=== PATIENT | female | born 1965 | race Caucasian/White ===

== ENCOUNTER 2017-10-12 01:03 | Emergency (ER) | payer OTHER, SELFPAY ==
[2017-10-12 01:04] VITALS: BP 149/110; PULSE 111; RESP 17; TEMP 36.6; O2SAT 99; BMI 35.9
--- NOTE | 2017-10-12 01:11 | ED.VISSUMM ---
- ER Visit Summary Date of Service: 10/12/17 Chief Complaint: [] Abnormal labs History of Present Illness: The patient is a 52 F [] reports she was called by her PCPs office for report of a high potassium. Patient denies any chest pain or shortness of breath. She is asymptomatic. She is here to confirm her reported hyperkalemia. Physical Examination: [] Afebrile, vital signs stable. Cardiovascular exam is regular rate and rhythm. Lungs are clear to auscultation. Abdomen is soft nontender. Test Results: [] CBC, BMP: Normal. Emergency Department Course and Treatment: [] Patient evaluated for reported hyperkalemia which was negative. Patient counseled regarding her laboratory findings and she was amenable to discharge and follow-up with her PCP. Treatment Plan: [] Follow-up with PCP. Disposition: [] Discharge, stable. Impression: [] Evaluated for condition not found False positive lab results This note was generated with [employer] dictation software. It may contain incorrect words, spelling, and punctuation that were not noted in review of the chart prior to signing ED Disposition - Plan for ED Patient: Chief Complaint: Abn Labs Referrals: [facility] ,Out of [Primary Care Provider] -
[2017-10-12 01:24] VITALS: BP 143/106; PULSE 104; RESP 18; TEMP 36.6; O2SAT 97
[2017-10-12 01:28] LABS: Hematocrit 43.3 % (37-47); Hemoglobin 14.3 g/dl (12.0-15.0); Mean Corpuscular Hgb 30.9 pg (27.0-32.0); Mean Corpuscular Volume 93.5 fL (81-99); Mean Platelet Vol. 11.5 fl (6.2-12.0); Platelet Count 219 K/mm3 (150-450); RBC Distribution Width CV 13.4 % (11.6-14.6); RBC Distribution Width SD 44.2 fl (35.1-43.9); Red Blood Count 4.63 M/mm3 (4.2-5.4); White Blood Count 5.9 K/mm3 (4.4-11.0)
[2017-10-12 01:29] LABS: Scan Indicated on CBC? Y/N NO
[2017-10-12 01:39] LABS: Anion Gap 8 (5-15); BUN 17 mg/dL (7-18); BUN/Creat Ratio 18.3 RATIO (10-20); Calcium,Total 8.9 mg/dL (8.5-10.1); Chloride 106 mmol/L (98-107); Creatinine, Serum 0.93 mg/dL (0.55-1.02); EST Glomerular Filtration Rate 67 mL/min (>60); Est Glom Filt Rate - Afr Amer 81 mL/min (>60); Estimated Creatinine Clearance 52.79 ml/min; Glucose 105 mg/dL (74-106); Potassium 3.9 mmol/L (3.5-5.1); Sodium Level 141 mmol/L (136-145)
--- NOTE | 2017-10-12 02:04 | ED.DEP ---
ED Disposition - Plan for ED Patient: Disposition: Home or Assisted Living Chief Complaint: Abn Labs Instructions: Discharge Instructions: Eating a High Potassium Diet Referrals: [facility],Out of [Primary Care Provider] -
--- NOTE | 2017-10-12 02:07 | DCINST.ED_ITS ---
ED Disposition - Plan for ED Patient: Disposition: Home or Assisted Living Chief Complaint: Abn Labs Instructions: Discharge Instructions: Eating a High Potassium Diet Referrals: [facility] Doctor,Out of [Primary Care Provider] -
[2017-10-12 02:11] VITALS: RESP 18
== END 2017-10-12 02:11 | disposition home or self-care (01) ==
PROVIDERS: Emergency Provider Emergency Medicine
DX: Z03.89 Encounter for observation for other suspected diseases and conditions ruled out (principal); I10 Essential (primary) hypertension; R51 Headache; Z79.899 Other long term (current) drug therapy
CPT/HCPCS: 80048; 85027; 99282

== ENCOUNTER 2018-12-13 13:45 | Inpatient (IN) | payer OTHER, SELFPAY ==
[2018-12-13] VITALS (12 sets, daily range): BP systolic 125–136; BP diastolic 89–105; PULSE 112–138; RESP 12–18; TEMP 36.7–37.7; O2SAT 94–100; BMI 36.8; BMI 36.1; BMI 36.2
--- NOTE | 2018-12-13 15:09 | EKG12_ITS ---
Test Reason : Blood Pressure : / mmHG Vent. Rate : 129 BPM Atrial Rate : 129 BPM P-R Int : 134 ms QRS Dur : 084 ms QT Int : 326 ms P-R-T Axes : 041 -03 018 degrees QTc Int : 477 ms Sinus tachycardia Nonspecific ST abnormality Poor R-Wave Progression Abnormal ECG Confirmed by APOLLO SILVEIRA, KARRI ([id number]), acquisitions editor CHRISS JENKINS ([id number]) on 12/17/2018 9:09:39 AM Referred By: Marvel Covarrubias Confirmed By:KARRI BUSTILLOS MD
--- NOTE | 2018-12-13 15:11 | ED.VISSUMM ---
- ER Visit Summary Date of Service: 12/13/18 Chief Complaint: left foot Infection History of Present Illness: The patient is a 53 F who presents for an infection of the left foot. Patient states she was clipping her fifth toenail 6 days ago and accidentally cut it. 2 days later the toe became sore and so she soaked in iodine solution. It was feeling better but then 3 days ago the foot started hurting. Yesterday patient was seen at urgent care and started on doxycycline. The margins of the infection were demarcated with a pen and patient was told to return if the redness went outside the lines. Patient states the pain was the worst yesterday and today pain is minimal but she has episodes where the foot feels numb. Patient denies history of diabetes or immunocompromise. She has history of hypertension. She is not a smoker. She has had fever at home. Also nausea. Physical Examination: Vital signs: Temperature 91.8, hemodynamically stable, no hypoxia on room air General: well nourished, well developed, in no distress Skin: warm, diaphoretic, no pallor HEENT: normocephalic and atraumatic; PERRL, EOMI, moist mucous membranes Cardiovascular: Tachycardic rate of 138 and regular rhythm without murmurs, no peripheral edema, 2+ pulses all distal extremities Respiratory: No increased work of breathing, lungs are clear to auscultation bilaterally, no rales, rhonchi or wheezing Abdominal: Abdomen is soft, nontender with normoactive bowel sounds, no guarding or rebound, no masses MSK: Moves all extremities, no deformities, normal strength; left foot has erythema and swelling on the dorsum of the foot and the fifth toe radiating into the ankle region, lymphangitic streaking up the distal to mid lower extremity, foot is tender to palpation, no noted fluctuance Neuro: Awake and alert, oriented ?4. No facial droop, sensation and motor function intact and symmetric Test Results: Abnormal Lab Results 12/13/18 12/13/18 12/13/18 15:28 15:28 15:28 WBC 15.9 H RBC 4.62 Hgb 14.2 Hct 42.7 MCV 92.4 MCH 30.7 MCHC 33.3 RDW 13.5 RDW Differential 45.4 H Plt Count 211 MPV 10.7 Immature Gran % (Auto) 0.200 Neut % (Auto) 82.8 H Lymph % (Auto) 8.9 L [place] % (Auto) 7.4 Eos % (Auto) 0.6 Baso % (Auto) 0.1 Absolute Neuts (auto) 13.2 H Absolute Lymphs (auto) 1.41 Total Counted Not Reportable PT 13.9 INR 1.1 APTT 36.0 Sodium 138 Potassium 3.2 L Chloride 101 Carbon Dioxide 27.0 Anion Gap 10 BUN 12 Creatinine 0.77 Estim Creat Clear Calc 63.03 Est GFR (MDRD) Af Amer 100 Est GFR (MDRD) Non-Af 83 BUN/Creatinine Ratio 15.6 Glucose 111 H Lactic Acid Calcium 9.5 Total Bilirubin 0.80 AST 24 ALT 66 H Alkaline Phosphatase 94 Total Protein 8.2 Albumin 3.8 Globulin 4.4 H Albumin/Globulin Ratio 0.9 Urine Color Urine Clarity Urine pH Ur Specific [place] Urine Protein Urine Glucose (UA) Urine Ketones Urine Occult Blood Urine Nitrite Urine Bilirubin Urine Urobilinogen Ur Leukocyte Esterase Urine RBC Urine WBC Ur Squamous Epith Cells Urine Bacteria Urine Mucus 12/13/18 12/13/18 15:28 16:44 WBC RBC Hgb Hct MCV MCH MCHC RDW RDW Differential Plt Count MPV Immature Gran % (Auto) Neut % (Auto) Lymph % (Auto) [place] % (Auto) Eos % (Auto) Baso % (Auto) Absolute Neuts (auto) Absolute Lymphs (auto) Total Counted PT INR APTT Sodium Potassium Chloride Carbon Dioxide Anion Gap BUN Creatinine Estim Creat Clear Calc Est GFR (MDRD) Af Amer Est GFR (MDRD) Non-Af BUN/Creatinine Ratio Glucose Lactic Acid 1.3 Calcium Total Bilirubin AST ALT Alkaline Phosphatase Total Protein Albumin Globulin Albumin/Globulin Ratio Urine Color Yellow Urine Clarity Clear Urine pH 7.0 Ur Specific [place] 1.010 Urine Protein Negative Urine Glucose (UA) Normal Urine Ketones 50 H Urine Occult Blood Negative Urine Nitrite Negative Urine Bilirubin Negative Urine Urobilinogen Normal Ur Leukocyte Esterase Negative Urine RBC 0 SEEN Urine WBC 0 SEEN Ur Squamous Epith Cells 0-5 SEEN Urine Bacteria 0 SEEN Urine Mucus 0 SEEN Clinical Impression(s) from Imaging Studies Foot X-Ray 12/13/18 15:14 IMPRESSION: Significant dorsal soft tissue edema 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 Electronically Signed: Artemio Mason, at 16:22 EDT Tel , Service support , Medications Given Acetaminophen (Tylenol) 1,000 mg PO X1 ONE Stop: 12/13/18 15:09 Last Admin: 12/13/18 15:46 Dose: 1,000 mg Sodium Chloride () 1,000 mls @ 999 mls/hr IV .Q1H1M ONE Stop: 12/13/18 16:09 Last Admin: 12/13/18 15:42 Dose: 999 mls/hr Vancomycin HCl 2,000 mg/ (Sodium Chloride) 540 mls @ 250 mls/hr IV X1 ONE Stop: 12/13/18 17:54 Last Admin: 12/13/18 16:05 Dose: 250 mls/hr Ampicillin Sodium/Sulbactam (Sodium 3 gm/ Sodium Chloride) 112 mls @ 150 mls/hr IV X1 ONE Stop: 12/13/18 17:47 Last Admin: 12/13/18 17:22 Dose: 150 mls/hr Potassium Chloride (K-Dur) 60 meq PO X1 ONE Stop: 12/13/18 17:54 Last Admin: 12/13/18 18:24 Dose: 60 meq Emergency Department Course and Treatment: Patient is having constitutional symptoms and is tachycardic with a worsening foot infection, with erythema well outside of the demarcations marked yesterday and lymphangitic streaking noted going up the leg. Sepsis work-up was performed. Patient was given IV fluids and given Tylenol for fever. Vancomycin was started empirically per sepsis protocol for soft tissue infection. Patient had a leukocytosis of 15.9. Lactate was within normal limits at 1.3. Left foot x-ray showed no deep space gas but did show soft tissue edema. Remainder of work-up was unremarkable. Patient was discussed with Dr. Covarrubias for admission for left lower extremity cellulitis, failed outpatient treatment, and sepsis. Unasyn was added for further coverage of cellulitis pathogens. Treatment Plan: [] Disposition: [] Impression: Sepsis, left lower extremity cellulitis, failed outpatient treatment This note was generated with [employer] dictation software. It may contain incorrect words, spelling, and punctuation that were not noted in review of the chart prior to signing ED Disposition - Plan for ED Patient: Disposition: Acute Care [facility]
--- NOTE | 2018-12-13 15:14 | RAD_ITS ---
STUDY: X-RAY - LEFT FOOT CLINICAL: Female, 53 years old. Swelling, infection TECHNIQUE: 3 view(s) of the foot. COMPARISON: None. FINDINGS: There is significant predominantly dorsal soft tissue edema. There is osteoarthrosis of the first metatarsal phalangeal joint with osteophyte formation. There are no fractures. There are no lytic or blastic lesions.. 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
--- NOTE | 2018-12-13 15:14 | ED.DCSUM_ITS ---
- ER Visit Summary Date of Service: 12/13/18 Chief Complaint: left foot Infection History of Present Illness: The patient is a 53 F who presents for an infection of the left foot. Patient states she was clipping her fifth toenail 6 days ago and accidentally cut it. 2 days later the toe became sore and so she soaked in iodine solution. It was feeling better but then 3 days ago the foot started hurting. Yesterday patient was seen at urgent care and started on doxycycline. The margins of the infection were demarcated with a pen and patient was told to return if the redness went outside the lines. Patient states the pain was the worst yesterday and today pain is minimal but she has episodes where the foot feels numb. Patient denies history of diabetes or immunocompromise. She has history of hypertension. She is not a smoker. She has had fever at home. Also nausea. Physical Examination: Vital signs: Temperature 91.8, hemodynamically stable, no hypoxia on room air General: well nourished, well developed, in no distress Skin: warm, diaphoretic, no pallor HEENT: normocephalic and atraumatic; PERRL, EOMI, moist mucous membranes Cardiovascular: Tachycardic rate of 138 and regular rhythm without murmurs, no peripheral edema, 2+ pulses all distal extremities Respiratory: No increased work of breathing, lungs are clear to auscultation bilaterally, no rales, rhonchi or wheezing Abdominal: Abdomen is soft, nontender with normoactive bowel sounds, no guarding or rebound, no masses MSK: Moves all extremities, no deformities, normal strength; left foot has erythema and swelling on the dorsum of the foot and the fifth toe radiating into the ankle region, lymphangitic streaking up the distal to mid lower extremity, foot is tender to palpation, no noted fluctuance Neuro: Awake and alert, oriented ?4. No facial droop, sensation and motor function intact and symmetric Test Results: Abnormal Lab Results 12/13/18 12/13/18 12/13/18 15:28 15:28 15:28 WBC 15.9 H RBC 4.62 Hgb 14.2 Hct 42.7 MCV 92.4 MCH 30.7 MCHC 33.3 RDW 13.5 RDW Differential 45.4 H Plt Count 211 MPV 10.7 Immature Gran % (Auto) 0.200 Neut % (Auto) 82.8 H Lymph % (Auto) 8.9 L [place] % (Auto) 7.4 Eos % (Auto) 0.6 Baso % (Auto) 0.1 Absolute Neuts (auto) 13.2 H Absolute Lymphs (auto) 1.41 Total Counted Not Reportable PT 13.9 INR 1.1 APTT 36.0 Sodium 138 Potassium 3.2 L Chloride 101 Carbon Dioxide 27.0 Anion Gap 10 BUN 12 Creatinine 0.77 Estim Creat Clear Calc 63.03 Est GFR (MDRD) Af Amer 100 Est GFR (MDRD) Non-Af 83 BUN/Creatinine Ratio 15.6 Glucose 111 H Lactic Acid Calcium 9.5 Total Bilirubin 0.80 AST 24 ALT 66 H Alkaline Phosphatase 94 Total Protein 8.2 Albumin 3.8 Globulin 4.4 H Albumin/Globulin Ratio 0.9 Urine Color Urine Clarity Urine pH Ur Specific [place] Urine Protein Urine Glucose (UA) Urine Ketones Urine Occult Blood Urine Nitrite Urine Bilirubin Urine Urobilinogen Ur Leukocyte Esterase Urine RBC Urine WBC Ur Squamous Epith Cells Urine Bacteria Urine Mucus 12/13/18 12/13/18 15:28 16:44 WBC RBC Hgb Hct MCV MCH MCHC RDW RDW Differential Plt Count MPV Immature Gran % (Auto) Neut % (Auto) Lymph % (Auto) [place] % (Auto) Eos % (Auto) Baso % (Auto) Absolute Neuts (auto) Absolute Lymphs (auto) Total Counted PT INR APTT Sodium Potassium Chloride Carbon Dioxide Anion Gap BUN Creatinine Estim Creat Clear Calc Est GFR (MDRD) Af Amer Est GFR (MDRD) Non-Af BUN/Creatinine Ratio Glucose Lactic Acid 1.3 Calcium Total Bilirubin AST ALT Alkaline Phosphatase Total Protein Albumin Globulin Albumin/Globulin Ratio Urine Color Yellow Urine Clarity Clear Urine pH 7.0 Ur Specific [place] 1.010 Urine Protein Negative Urine Glucose (UA) Normal Urine Ketones 50 H Urine Occult Blood Negative Urine Nitrite Negative Urine Bilirubin Negative Urine Urobilinogen Normal Ur Leukocyte Esterase Negative Urine RBC 0 SEEN Urine WBC 0 SEEN Ur Squamous Epith Cells 0-5 SEEN Urine Bacteria 0 SEEN Urine Mucus 0 SEEN Clinical Impression(s) from Imaging Studies Foot X-Ray 12/13/18 15:14 IMPRESSION: Significant dorsal soft tissue edema 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 Electronically Signed: Artemio Mason, at 16:22 EDT Tel , Service support , Medications Given Acetaminophen (Tylenol) 1,000 mg PO X1 ONE Stop: 12/13/18 15:09 Last Admin: 12/13/18 15:46 Dose: 1,000 mg Sodium Chloride () 1,000 mls @ 999 mls/hr IV .Q1H1M ONE Stop: 12/13/18 16:09 Last Admin: 12/13/18 15:42 Dose: 999 mls/hr Vancomycin HCl 2,000 mg/ (Sodium Chloride) 540 mls @ 250 mls/hr IV X1 ONE Stop: 12/13/18 17:54 Last Admin: 12/13/18 16:05 Dose: 250 mls/hr Ampicillin Sodium/Sulbactam (Sodium 3 gm/ Sodium Chloride) 112 mls @ 150 mls/hr IV X1 ONE Stop: 12/13/18 17:47 Last Admin: 12/13/18 17:22 Dose: 150 mls/hr Potassium Chloride (K-Dur) 60 meq PO X1 ONE Stop: 12/13/18 17:54 Last Admin: 12/13/18 18:24 Dose: 60 meq Emergency Department Course and Treatment: Patient is having constitutional symptoms and is tachycardic with a worsening foot infection, with erythema well outside of the demarcations marked yesterday and lymphangitic streaking noted going up the leg. Sepsis work-up was performed. Patient was given IV fluids and given Tylenol for fever. Vancomycin was started empirically per sepsis protocol for soft tissue infection. Patient had a leukocytosis of 15.9. Lactate was within normal limits at 1.3. Left foot x-ray showed no deep space gas but did show soft tissue edema. Remainder of work-up was unremarkable. Patient was discussed with Dr. Covarrubias for admission for left lower extremity cellulitis, failed outpatient treatment, and sepsis. Unasyn was added for further coverage of cellulitis pathogens. Treatment Plan: [] Disposition: [] Impression: Sepsis, left lower extremity cellulitis, failed outpatient treatment This note was generated with [employer] dictation software. It may contain incorrect words, spelling, and punctuation that were not noted in review of the chart prior to signing ED Disposition - Plan for ED Patient: Disposition: Acute Care [facility]
[2018-12-13 15:42] LABS: Absolute Lymphocyte Count 1.41 X10^3/ul (0.83-4.51); Absolute Neutrophil Count 13.2 X10^3/uL (2.0-7.7); Basophil# 0.02 X10^3/uL; Basophil% 0.1 % (0-1); Eosinophils% 0.6 % (0-5); Hematocrit 42.7 % (37-47); Hemoglobin 14.2 g/dl (12.0-15.0); Lymphocyte # 1.41 X10^3/ul (4.0); Lymphocyte % 8.9 % (19-41); Mean Corp Hgb Conc 33.3 g/gl (32-36); Mean Corpuscular Hgb 30.7 pg (27.0-32.0); Mean Corpuscular Volume 92.4 fL (81-99); Mean Platelet Vol. 10.7 fl (6.2-12.0); Monocyte# 1.17 X10^3/uL; Monocyte% 7.4 % (0-10); Neutrophil # 13.15 X10^3/uL (2.7-7.7); Neutrophil % 82.8 % (47-70); POSITIVE COUNT NO; POSITIVE DIFFERENTIAL NO; POSITIVE MORPHOLOGY NO; Platelet Count 211 K/mm3 (150-450); RBC Distribution Width CV 13.5 % (11.6-14.6); RBC Distribution Width SD 45.4 fl (35.1-43.9); Red Blood Count 4.62 M/mm3 (4.2-5.4); White Blood Count 15.9 K/mm3 (4.4-11.0)
[2018-12-13] MEDS: 0.9% Normal Saline 1,000 ML 999 ML IV (15:42)
[2018-12-13] MEDS: Acetaminophen 500 MG Tablet 1000 MG PO (15:46)
[2018-12-13 15:50] LABS: International Normalized Ratio 1.1; Prothrombin Time (Protime)PT. 13.9 SECONDS (11.7-14.9)
--- NOTE | 2018-12-13 15:58 | RAD_ITS ---
STUDY: X-RAY CHEST REASON FOR EXAM: Female, 53 years old. Fever TECHNIQUE: PA and lateral chest COMPARISON: None. FINDINGS: The lungs are clear and expanded. There is no demonstrated pleural abnormality. Normal size heart. Normal mediastinum and ginny. Normal visualized pulmonary arteries. Normal visualized aortic arch and descending thoracic aorta. Normal visualized thoracic spine. Normal visualized ribs, clavicles, and shoulders. There is no demonstrated abnormality of the visualized soft tissue structures of the upper abdomen. RAD/Chest PA and Lateral IMPRESSION: Normal x-ray examination of the chest. Electronically Signed: Artemio Mason, at 16:22 EDT Tel , Service support ,
[2018-12-13 16:02] LABS: ALB/GLOB Ratio 0.9 RATIO (0.9-2.4); AST(SGOT) 24 U/L (15-37); Alanine Aminotransfer ALT/SGPT 66 U/L (13-56); Albumin, Serum 3.8 g/dL (3.2-5.0); Alkaline Phosphatase 94 U/L (45-117); Anion Gap 10 (5-15); BUN 12 mg/dL (7-18); BUN/Creat Ratio 15.6 RATIO (10-20); Calcium,Total 9.5 mg/dL (8.5-10.1); Chloride 101 mmol/L (98-107); Creatinine, Serum 0.77 mg/dL (0.55-1.02); EST Glomerular Filtration Rate 83 mL/min (>60); Est Glom Filt Rate - Afr Amer 100 mL/min (>60); Estimated Creatinine Clearance 63.03 ml/min; Globulin 4.4 g/dL (2.2-4.2); Glucose 111 mg/dL (74-106); Potassium 3.2 mmol/L (3.5-5.1); Protein, Total 8.2 g/dL (6.4-8.2); Sodium Level 138 mmol/L (136-145)
[2018-12-13 16:12] LABS: Lactic Acid 1.3 mmol/L (0.4-2.0)
[2018-12-13 16:54] LABS: Bacteria 0 SEEN /hpf (None Seen); Mucous, Urine 0 SEEN /hpf (<or=2+); Red Blood Cells-Urine 0 SEEN /hpf (0-5); White Blood Cells 0 SEEN /hpf (0-5)
[2018-12-13 17:11] LABS: Color, Urine Yellow (Yellow); Glucose, Dipstick Normal (Normal); Ketone-Dipstick 50 mg/dl (Negative); Leukocyte Esterase-Dipstick Negative /ul (Negative); Nitrite-Dipstick Negative (Negative); Occult Blood-Urine Negative /ul (Negative); Protein-Dipstick Negative (Negative); Urine Bilirubin Dipstick Negative (Negative); Urine Clarity Clear (Clear); Urine Urobilinogen Normal (Normal)
[2018-12-13 17:13] LABS: Squamous Epithelial Cells - UA 0-5 SEEN /hpf (5-10)
--- NOTE | 2018-12-13 17:18 | PCM.HP.STD ---
Problem List (1) Sepsis Status: Acute (2) Cellulitis of left foot Status: Acute (3) GERD (gastroesophageal reflux disease) Status: Chronic (4) Hypertension Status: Chronic History of Present Illness Date of Admission: 12/13/18 Chief Complaint: Left foot swelling, redness and pain. The patient is a 53 year old F with past medical history as mentioned above presented to the emergency room because of left foot pain, swelling and redness. Patient stated that that she clipped her fifth toenail few days ago. 2 days ago, she she mentioned that her left little toe started to swell up, became itchy and red. Swelling and redness extended to the dorsal aspect of the left foot, associated with left foot pain, described as mild dull achy pain, 2 out of 10 in severity, not radiating, associated with subjective fever and without aggravating or relieving factors. Yesterday, she went to urgent care and she was prescribed with doxycycline. Today, she states that the swelling and redness of the left foot continued to worsen, start to blow up to the lower part of her left leg and she continued to have subjective fever. She denied trauma or fall to her left foot or left leg. She denies cough or sputum production. She denies urinary symptoms. In the emergency room, patient was tachycardic, had a spike of low-grade fever, blood pressure was stable, pulse ox was 94% on room air. Her routine blood work was remarkable for leukocytosis and potassium of 3.2, otherwise normal. LFT was normal. Lactic acid was 1.3. Urine analysis pending at this time. Chest x-ray showed no acute findings. X-ray of the left foot revealed significant dorsal soft tissue edema, no acute fractures. She is being admitted for acute left foot/left lower leg Cellulitis with sepsis and also for hypokalemia. Past Medical History Past Medical History (Chronic Problems): Chronic Problems GERD (gastroesophageal reflux disease) (Chronic) Hypertension (Chronic) Allergies No Known Allergies Allergy (Verified 10/12/17 01:28) Home Medications: Ambulatory Orders Medication Instructions Recorded Hydrochlorothiazide 12.5 mg PO DAILY 10/12/17 Doxycycline Hyclate 100 mg PO BID 12/13/18 Omeprazole [Prilosec] 40 mg PO DAILY 12/13/18 Surgical History: no surgical history Psychiatric History: No pertinent psych hx [employer]ALT [employer] History: No pertinent [employer] history Lives: Spouse/ Significant Other Smoking Status: Never smoker Alcohol: None Drugs: None - *Family History Maternal History Items: Dementia, - Paternal History Items: Heart Disease Review of Systems Constitutional: Reports: Fever. Denies: Anorexia, Chills, Weakness Eyes: Denies: Blurred vision, Double vision, Drainage, Redness HEENT: Denies: Difficulty Hearing, Ear Pain, Eye Pain, Nasal Congestion, Sore Throat Cardiovascular: Denies: Chest Pain, Chest Pressure, Chest Tightness, Heaviness, Light Headedness, Palpitations, Syncope Respiratory: Denies: Cough, Pleuritic Pain, Shortness of Breath, Sputum production, Wheezing Gastrointestinal: Reports: Constipation. Denies: Abdominal Pain, Diarrhea, Nausea, Vomiting Genitourinary: Denies: Dysuria, Frequency, Hematuria Musculoskeletal: Reports: Foot Pain, Leg Pain. Denies: Arm Pain, Back Pain Skin: Denies: Dryness, Rash Neurological: Denies: Balance problems, Double vision, Change in Speech, Slurred speech, Confusion, Headaches, Incoordination Psychiatric: Denies: Anxiety, Depression Endocrine: Denies: Change in Body Habitus, Polydipsia VTE Information - Inpt Only VTE Present on Admission: No VTE Mechan Device Prophylaxis: None VTE Pharm Prophylaxis ordered?: Yes Patient Problems: Active and Suspected Problems Sepsis (Acute) Cellulitis of left foot (Acute) - Physical Exam General: Alert, Oriented x3, Cooperative, No apparent distress HEENT: Atraumatic, PERRLA, EOMI, Normocephalic Oral: Moist Mucosa, No Gingival or Mucosal Lesions/ Ulcerations Neck: Supple, No JVD, Negative Carotid Bruits, Trachea Midline, Thyroid Normal Size and Texture Lungs: Clear to auscultation, Normal air movement, No rhonchi, No wheeze, No rales Cardiovascular: Regular rate, Regular Rhythm, Normal S1, Normal S2, No murmurs, PMI Normal, Tachycardic Abdomen: Bowel Sounds Present, Soft, Non Tender, Non-Distended, No Hepato-splenomegaly Extremities: No clubbing, No cyanosis, No edema, - - Left foot/left lower leg: Erythema, edema on the dorsal aspect of the left foot extending to the lower one third of the left leg. No open wounds or drainage. Skin: No rashes, No breakdown Lymphatic: No Cervical, Supraclavicular, or Inguinal Adenopathy Neurological: Cranial nerves II-XII grossly intact, Motor Exam 5/5 strength throughout Psych/Mental Status: Normal Affect, Appropriate, Alert and oriented to time, place, person, mood and affect Vital Signs Temp Pulse Resp BP Pulse Ox 99.1 F 118 H 12 125/89 H 97 12/13/18 16:36 12/13/18 17:13 12/13/18 17:13 12/13/18 17:13 12/13/18 17:13 Oxygen Delivery Method Room Air Weight: 195 lb Body Mass Index (BMI) 36.8 Laboratory Tests Past 24 Hrs 12/13/18 12/13/18 12/13/18 15:28 15:28 15:28 WBC 15.9 H RBC 4.62 Hgb 14.2 Hct 42.7 MCV 92.4 MCH 30.7 MCHC 33.3 RDW 13.5 RDW Differential 45.4 H Plt Count 211 MPV 10.7 Immature Gran % (Auto) 0.200 Neut % (Auto) 82.8 H Lymph % (Auto) 8.9 L [place] % (Auto) 7.4 Eos % (Auto) 0.6 Baso % (Auto) 0.1 Absolute Neuts (auto) 13.2 H Absolute Lymphs (auto) 1.41 Total Counted Not Reportable PT 13.9 INR 1.1 APTT 36.0 Sodium 138 Potassium 3.2 L Chloride 101 Carbon Dioxide 27.0 Anion Gap 10 BUN 12 Creatinine 0.77 Estim Creat Clear Calc 63.03 Est GFR (MDRD) Af Amer 100 Est GFR (MDRD) Non-Af 83 BUN/Creatinine Ratio 15.6 Glucose 111 H Lactic Acid Calcium 9.5 Total Bilirubin 0.80 AST 24 ALT 66 H Alkaline Phosphatase 94 Total Protein 8.2 Albumin 3.8 Globulin 4.4 H Albumin/Globulin Ratio 0.9 Urine Color Urine Clarity Urine pH Ur Specific [place] Urine Protein Urine Glucose (UA) Urine Ketones Urine Occult Blood Urine Nitrite Urine Bilirubin Urine Urobilinogen Ur Leukocyte Esterase Urine RBC Urine WBC Ur Squamous Epith Cells Urine Bacteria Urine Mucus 12/13/18 12/13/18 15:28 16:44 WBC RBC Hgb Hct MCV MCH MCHC RDW RDW Differential Plt Count MPV Immature Gran % (Auto) Neut % (Auto) Lymph % (Auto) [place] % (Auto) Eos % (Auto) Baso % (Auto) Absolute Neuts (auto) Absolute Lymphs (auto) Total Counted PT INR APTT Sodium Potassium Chloride Carbon Dioxide Anion Gap BUN Creatinine Estim Creat Clear Calc Est GFR (MDRD) Af Amer Est GFR (MDRD) Non-Af BUN/Creatinine Ratio Glucose Lactic Acid 1.3 Calcium Total Bilirubin AST ALT Alkaline Phosphatase Total Protein Albumin Globulin Albumin/Globulin Ratio Urine Color Yellow Urine Clarity Clear Urine pH 7.0 Ur Specific [place] 1.010 Urine Protein Negative Urine Glucose (UA) Normal Urine Ketones 50 H Urine Occult Blood Negative Urine Nitrite Negative Urine Bilirubin Negative Urine Urobilinogen Normal Ur Leukocyte Esterase Negative Urine RBC 0 SEEN Urine WBC 0 SEEN Ur Squamous Epith Cells 0-5 SEEN Urine Bacteria 0 SEEN Urine Mucus 0 SEEN Clinical Impression(s) from Imaging Studies Foot X-Ray 12/13/18 15:14 IMPRESSION: Significant dorsal soft tissue edema 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 Electronically Signed: Artemio Mason, at 16:22 EDT Tel , Service support , Assessment/Plan All Active Problems Sepsis (Acute) Cellulitis of left foot (Acute) This is a 53 years old female patient presented to the emergency room because of left foot swelling, redness and pain with subjective fever and she was found to have acute cellulitis of the left foot/left lower leg with sepsis and she was on doxycycline as outpatient that was prescribed by urgent care without improvement. #1 acute cellulitis of the left foot/left lower leg/sepsis: Erythema and edema extends from left foot up to the lower one third of the left leg, left foot and left leg are hot to palpatio. Patient having no spikes of spikes of low-grade fever, tachycardia, lactic acid is normal. No evidence of open wounds or drainage. Plan: Admit to MedSurg floor, cardiac monitoring, IV fluids, Tylenol as needed, OxyIR as needed, IV antiemetics, blood and urine cultures, urinalysis, repeat CBC and BMP tomorrow morning, start IV cefazolin, MRSA nasal screening. #2 hypokalemia: Likely because of HCTZ. Plan to give 1 dose of K. Dur 60 mEq x 1 now, K. Dur 40 mEq daily starting tomorrow, repeat BMP tomorrow morning. #3 hypertension: Blood pressure stable, continue HCTZ. #4 GERD: Continue PPI. #5 DVT prophylaxis: Subcu Lovenox. This note was generated with [employer] dictation software. It may contain incorrect words, spelling, and punctuation that were not noted in checking the note before signing. Code Visit Inpatient E&M: [id number] [facility]
--- NOTE | 2018-12-13 17:23 | HP.PCM_ITS ---
Problem List (1) Sepsis Status: Acute (2) Cellulitis of left foot Status: Acute (3) GERD (gastroesophageal reflux disease) Status: Chronic (4) Hypertension Status: Chronic History of Present Illness Date of Admission: 12/13/18 Chief Complaint: Left foot swelling, redness and pain. The patient is a 53 year old F with past medical history as mentioned above presented to the emergency room because of left foot pain, swelling and redness. Patient stated that that she clipped her fifth toenail few days ago. 2 days ago, she she mentioned that her left little toe started to swell up, became itchy and red. Swelling and redness extended to the dorsal aspect of the left foot, associated with left foot pain, described as mild dull achy pain, 2 out of 10 in severity, not radiating, associated with subjective fever and without aggravating or relieving factors. Yesterday, she went to urgent care and she was prescribed with doxycycline. Today, she states that the swelling and redness of the left foot continued to worsen, start to blow up to the lower part of her left leg and she continued to have subjective fever. She denied trauma or fall to her left foot or left leg. She denies cough or sputum production. She denies urinary symptoms. In the emergency room, patient was tachycardic, had a spike of low-grade fever, blood pressure was stable, pulse ox was 94% on room air. Her routine blood work was remarkable for leukocytosis and potassium of 3.2, otherwise normal. LFT was normal. Lactic acid was 1.3. Urine analysis pending at this time. Chest x-ray showed no acute findings. X-ray of the left foot revealed significant dorsal soft tissue edema, no acute fractures. She is being admitted for acute left foot/left lower leg Cellulitis with sepsis and also for hypokalemia. Past Medical History Past Medical History (Chronic Problems): Chronic Problems GERD (gastroesophageal reflux disease) (Chronic) Hypertension (Chronic) Allergies No Known Allergies Allergy (Verified 10/12/17 01:28) Home Medications: Ambulatory Orders Medication Instructions Recorded Hydrochlorothiazide 12.5 mg PO DAILY 10/12/17 Doxycycline Hyclate 100 mg PO BID 12/13/18 Omeprazole [Prilosec] 40 mg PO DAILY 12/13/18 Surgical History: no surgical history Psychiatric History: No pertinent psych hx R[employer]TE [employer]IDE History: No pertinent [employer] AIDE history Lives: Spouse/ Significant Other Smoking Status: Never smoker Alcohol: None Drugs: None - *Family History Maternal History Items: Dementia, - Paternal History Items: Heart Disease Review of Systems Constitutional: Reports: Fever. Denies: Anorexia, Chills, Weakness Eyes: Denies: Blurred vision, Double vision, Drainage, Redness HEENT: Denies: Difficulty Hearing, Ear Pain, Eye Pain, Nasal Congestion, Sore Throat Cardiovascular: Denies: Chest Pain, Chest Pressure, Chest Tightness, Heaviness, Light Headedness, Palpitations, Syncope Respiratory: Denies: Cough, Pleuritic Pain, Shortness of Breath, Sputum production, Wheezing Gastrointestinal: Reports: Constipation. Denies: Abdominal Pain, Diarrhea, Nausea, Vomiting Genitourinary: Denies: Dysuria, Frequency, Hematuria Musculoskeletal: Reports: Foot Pain, Leg Pain. Denies: Arm Pain, Back Pain Skin: Denies: Dryness, Rash Neurological: Denies: Balance problems, Double vision, Change in Speech, Slurred speech, Confusion, Headaches, Incoordination Psychiatric: Denies: Anxiety, Depression Endocrine: Denies: Change in Body Habitus, Polydipsia VTE Information - Inpt Only VTE Present on Admission: No VTE Mechan Device Prophylaxis: None VTE Pharm Prophylaxis ordered?: Yes Patient Problems: Active and Suspected Problems Sepsis (Acute) Cellulitis of left foot (Acute) - Physical Exam General: Alert, Oriented x3, Cooperative, No apparent distress HEENT: Atraumatic, PERRLA, EOMI, Normocephalic Oral: Moist Mucosa, No Gingival or Mucosal Lesions/ Ulcerations Neck: Supple, No JVD, Negative Carotid Bruits, Trachea Midline, Thyroid Normal Size and Texture Lungs: Clear to auscultation, Normal air movement, No rhonchi, No wheeze, No rales Cardiovascular: Regular rate, Regular Rhythm, Normal S1, Normal S2, No murmurs, PMI Normal, Tachycardic Abdomen: Bowel Sounds Present, Soft, Non Tender, Non-Distended, No Hepato- splenomegaly Extremities: No clubbing, No cyanosis, No edema, - - Left foot/left lower leg: Erythema, edema on the dorsal aspect of the left foot extending to the lower one third of the left leg. No open wounds or drainage. Skin: No rashes, No breakdown Lymphatic: No Cervical, Supraclavicular, or Inguinal Adenopathy Neurological: Cranial nerves II-XII grossly intact, Motor Exam 5/5 strength throughout Psych/Mental Status: Normal Affect, Appropriate, Alert and oriented to time, place, person, mood and affect Vital Signs Temp Pulse Resp BP Pulse Ox 99.1 F 118 H 12 125/89 H 97 12/13/18 16:36 12/13/18 17:13 12/13/18 17:13 12/13/18 17:13 12/13/18 17:13 Oxygen Delivery Method Room Air Weight: 195 lb Body Mass Index (BMI) 36.8 Laboratory Tests Past 24 Hrs 12/13/18 12/13/18 12/13/18 15:28 15:28 15:28 WBC 15.9 H RBC 4.62 Hgb 14.2 Hct 42.7 MCV 92.4 MCH 30.7 MCHC 33.3 RDW 13.5 RDW Differential 45.4 H Plt Count 211 MPV 10.7 Immature Gran % (Auto) 0.200 Neut % (Auto) 82.8 H Lymph % (Auto) 8.9 L [place] % (Auto) 7.4 Eos % (Auto) 0.6 Baso % (Auto) 0.1 Absolute Neuts (auto) 13.2 H Absolute Lymphs (auto) 1.41 Total Counted Not Reportable PT 13.9 INR 1.1 APTT 36.0 Sodium 138 Potassium 3.2 L Chloride 101 Carbon Dioxide 27.0 Anion Gap 10 BUN 12 Creatinine 0.77 Estim Creat Clear Calc 63.03 Est GFR (MDRD) Af Amer 100 Est GFR (MDRD) Non-Af 83 BUN/Creatinine Ratio 15.6 Glucose 111 H Lactic Acid Calcium 9.5 Total Bilirubin 0.80 AST 24 ALT 66 H Alkaline Phosphatase 94 Total Protein 8.2 Albumin 3.8 Globulin 4.4 H Albumin/Globulin Ratio 0.9 Urine Color Urine Clarity Urine pH Ur Specific [place] Urine Protein Urine Glucose (UA) Urine Ketones Urine Occult Blood Urine Nitrite Urine Bilirubin Urine Urobilinogen Ur Leukocyte Esterase Urine RBC Urine WBC Ur Squamous Epith Cells Urine Bacteria Urine Mucus 12/13/18 12/13/18 15:28 16:44 WBC RBC Hgb Hct MCV MCH MCHC RDW RDW Differential Plt Count MPV Immature Gran % (Auto) Neut % (Auto) Lymph % (Auto) [place] % (Auto) Eos % (Auto) Baso % (Auto) Absolute Neuts (auto) Absolute Lymphs (auto) Total Counted PT INR APTT Sodium Potassium Chloride Carbon Dioxide Anion Gap BUN Creatinine Estim Creat Clear Calc Est GFR (MDRD) Af Amer Est GFR (MDRD) Non-Af BUN/Creatinine Ratio Glucose Lactic Acid 1.3 Calcium Total Bilirubin AST ALT Alkaline Phosphatase Total Protein Albumin Globulin Albumin/Globulin Ratio Urine Color Yellow Urine Clarity Clear Urine pH 7.0 Ur Specific [place] 1.010 Urine Protein Negative Urine Glucose (UA) Normal Urine Ketones 50 H Urine Occult Blood Negative Urine Nitrite Negative Urine Bilirubin Negative Urine Urobilinogen Normal Ur Leukocyte Esterase Negative Urine RBC 0 SEEN Urine WBC 0 SEEN Ur Squamous Epith Cells 0-5 SEEN Urine Bacteria 0 SEEN Urine Mucus 0 SEEN Clinical Impression(s) from Imaging Studies Foot X-Ray 12/13/18 15:14 IMPRESSION: Significant dorsal soft tissue edema 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 Electronically Signed: Artemio Mason, at 16:22 EDT Tel , Service support , Assessment/Plan All Active Problems Sepsis (Acute) Cellulitis of left foot (Acute) This is a 53 years old female patient presented to the emergency room because of left foot swelling, redness and pain with subjective fever and she was found to have acute cellulitis of the left foot/left lower leg with sepsis and she was on doxycycline as outpatient that was prescribed by urgent care without improvement. #1 acute cellulitis of the left foot/left lower leg/sepsis: Erythema and edema extends from left foot up to the lower one third of the left leg, left foot and left leg are hot to palpatio. Patient having no spikes of spikes of low-grade fever, tachycardia, lactic acid is normal. No evidence of open wounds or drainage. Plan: Admit to MedSurg floor, cardiac monitoring, IV fluids, Tylenol as needed, OxyIR as needed, IV antiemetics, blood and urine cultures, urinalysis, repeat CBC and BMP tomorrow morning, start IV cefazolin, MRSA nasal screening. #2 hypokalemia: Likely because of HCTZ. Plan to give 1 dose of K. Dur 60 mEq x 1 now, K. Dur 40 mEq daily starting tomorrow, repeat BMP tomorrow morning. #3 hypertension: Blood pressure stable, continue HCTZ. #4 GERD: Continue PPI. #5 DVT prophylaxis: Subcu Lovenox. This note was generated with [employer] dictation software. It may contain incorrect words, spelling, and punctuation that were not noted in checking the note before signing. Code Visit Inpatient E&M: [id number] [facility]
[2018-12-13 20:22] LABS: Lactic Acid 1.9 mmol/L (0.4-2.0)
[2018-12-13 20:44] LABS: M R Staph aureus DNA By PCR Negative (Negative); Probe Check PASS; Specimen Processing Control PASS
[2018-12-13] MEDS: Senna Tablet 1 TABLET PO (21:38)
[2018-12-13] MEDS: Cefazolin 1 GM/50 ML BAG IV (21:38)
[2018-12-14] VITALS (10 sets, daily range): BP systolic 123–147; BP diastolic 76–88; PULSE 87–105; RESP 17–18; TEMP 36.8–37.1; O2SAT 95–99
[2018-12-14] MEDS: 0.9% Normal Saline 1,000 ML 125 ML IV (01:33)
[2018-12-14] MEDS: Acetaminophen 325 MG Tablet 650 MG PO ×2 (03:46→17:02)
[2018-12-14] MEDS: Cefazolin 1 GM/50 ML BAG IV ×3 (05:40→21:31)
[2018-12-14 06:22] LABS: Absolute Lymphocyte Count 1.71 X10^3/ul (0.83-4.51); Absolute Neutrophil Count 6.9 X10^3/uL (2.0-7.7); Basophil# 0.03 X10^3/uL; Basophil% 0.3 % (0-1); Eosinophil# 0.23 X10^3/uL; Eosinophils% 2.4 % (0-5); Hematocrit 37.3 % (37-47); Lymphocyte # 1.71 X10^3/ul (4.0); Lymphocyte % 17.5 % (19-41); Mean Corp Hgb Conc 32.2 g/gl (32-36); Mean Corpuscular Volume 93.3 fL (81-99); Mean Platelet Vol. 10.9 fl (6.2-12.0); Monocyte# 0.87 X10^3/uL; Monocyte% 8.9 % (0-10); Neutrophil % 70.8 % (47-70); Platelet Count 187 K/mm3 (150-450); RBC Distribution Width CV 13.7 % (11.6-14.6); RBC Distribution Width SD 47.3 fl (35.1-43.9); White Blood Count 9.8 K/mm3 (4.4-11.0)
[2018-12-14 06:26] LABS: POSITIVE COUNT NO; POSITIVE DIFFERENTIAL NO; POSITIVE MORPHOLOGY NO
[2018-12-14 06:42] LABS: Anion Gap 8 (5-15); BUN 9 mg/dL (7-18); Calcium,Total 8.3 mg/dL (8.5-10.1); Chloride 112 mmol/L (98-107); EST Glomerular Filtration Rate 137 mL/min (>60); Est Glom Filt Rate - Afr Amer 165 mL/min (>60); Estimated Creatinine Clearance 101.73 ml/min; Glucose 80 mg/dL (74-106); Potassium 3.8 mmol/L (3.5-5.1); Sodium Level 142 mmol/L (136-145)
--- NOTE | 2018-12-14 07:57 | VDLE_ITS ---
Reason For Study: Swelling RIGHT LEFT CFV is compressible, spontaneous, phasic, GSV is normal. competent and demonstrates normal CFV is compressible, spontaneous, phasic, augmentation. competent, and demonstrates normal Procedure augmentation. Exam performed portable in patient room. FV is compressible, spontaneous, phasic, A preliminary report was called and/or faxed competent and demonstrates normal to PCU Nurse. augmentation. POP V is compressible, spontaneous, phasic, competent and demonstrates normal augmentation. T/P Trunk is compressible. PTV is compressible. LT PerV is compressible. Interpretation Summary There is no evidence of left lower extremity deep vein thrombosis. Left greater saphenous vein appears patent and compressible segmentally. Normal flow patterns right common femoral vein Ordering Physician: Marvel Covarrubias Performed By: Neyda Cheng RVT
--- NOTE | 2018-12-14 07:57 | PCM.PROGNOTE ---
Patient Problems: Active and Suspected Problems Sepsis (Acute) Cellulitis of left foot (Acute) Subjective: Chief complaint: Follow-up after admission for acute cellulitis of the left foot/left lower leg with sepsis. Patient seen and examined. No acute events overnight. Swelling of the left foot remained almost the same, slightly more red, she is having less pain. She denies any fever overnight. Other vital signs are stable, heart rate is down to 90s to 100. - Physical Exam General: Alert, Oriented x3, Cooperative, No apparent distress HEENT: Atraumatic, PERRLA, EOMI, Normocephalic Oral: Moist Mucosa, No Gingival or Mucosal Lesions/ Ulcerations Neck: Supple, No JVD, Negative Carotid Bruits, Trachea Midline, Thyroid Normal Size and Texture Lungs: Clear to auscultation, Normal air movement, No rhonchi, No wheeze, No rales Cardiovascular: Regular rate, Regular Rhythm, Normal S1, Normal S2, PMI Normal Abdomen: Bowel Sounds Present, Soft, Non Tender, Non-Distended, No Hepato-splenomegaly Extremities: No clubbing, No cyanosis, No edema, - - Left foot/left lower leg: Erythema and edema of the dorsal aspect of the left foot, slightly worsened compared to yesterday, erythema extending to the lower one third of the left leg. Skin: No rashes, No breakdown Lymphatic: No Cervical, Supraclavicular, or Inguinal Adenopathy Neurological: Cranial nerves II-XII grossly intact, Neuro grossly intact Psych/Mental Status: Normal Affect, Appropriate, Alert and oriented to time, place, person, mood and affect Vital Signs Temp Pulse Resp BP Pulse Ox 98.7 F 87 18 132/88 H 95 12/14/18 03:40 12/14/18 07:00 12/14/18 03:40 12/14/18 03:40 12/14/18 03:40 Oxygen Delivery Method Room Air Weight: 197 lb 12.074 oz Body Mass Index (BMI) 36.1 Intake and Output for Last 24 Hours 12/12/18 12/13/18 12/14/18 23:59 23:59 23:59 Intake Total 2752 / 2752 Balance 2752 / 2752 Laboratory Tests Past 24 Hrs 12/13/18 12/13/18 12/13/18 15:28 15:28 15:28 WBC 15.9 H RBC 4.62 Hgb 14.2 Hct 42.7 MCV 92.4 MCH 30.7 MCHC 33.3 RDW 13.5 RDW Differential 45.4 H Plt Count 211 MPV 10.7 Immature Gran % (Auto) 0.200 Neut % (Auto) 82.8 H Lymph % (Auto) 8.9 L Richardson % (Auto) 7.4 Eos % (Auto) 0.6 Baso % (Auto) 0.1 Absolute Neuts (auto) 13.2 H Absolute Lymphs (auto) 1.41 Total Counted Not Reportable PT 13.9 INR 1.1 APTT 36.0 Sodium 138 Potassium 3.2 L Chloride 101 Carbon Dioxide 27.0 Anion Gap 10 BUN 12 Creatinine 0.77 Estim Creat Clear Calc 63.03 Est GFR (MDRD) Af Amer 100 Est GFR (MDRD) Non-Af 83 BUN/Creatinine Ratio 15.6 Glucose 111 H Lactic Acid Calcium 9.5 Total Bilirubin 0.80 AST 24 ALT 66 H Alkaline Phosphatase 94 Total Protein 8.2 Albumin 3.8 Globulin 4.4 H Albumin/Globulin Ratio 0.9 Urine Color Urine Clarity Urine pH Ur Specific Spencer Urine Protein Urine Glucose (UA) Urine Ketones Urine Occult Blood Urine Nitrite Urine Bilirubin Urine Urobilinogen Ur Leukocyte Esterase Urine RBC Urine WBC Ur Squamous Epith Cells Urine Bacteria Urine Mucus MRSA (PCR) 12/13/18 12/13/18 12/13/18 15:28 16:44 18:50 WBC RBC Hgb Hct MCV MCH MCHC RDW RDW Differential Plt Count MPV Immature Gran % (Auto) Neut % (Auto) Lymph % (Auto) Richardson % (Auto) Eos % (Auto) Baso % (Auto) Absolute Neuts (auto) Absolute Lymphs (auto) Total Counted PT INR APTT Sodium Potassium Chloride Carbon Dioxide Anion Gap BUN Creatinine Estim Creat Clear Calc Est GFR (MDRD) Af Amer Est GFR (MDRD) Non-Af BUN/Creatinine Ratio Glucose Lactic Acid 1.3 Calcium Total Bilirubin AST ALT Alkaline Phosphatase Total Protein Albumin Globulin Albumin/Globulin Ratio Urine Color Yellow Urine Clarity Clear Urine pH 7.0 Ur Specific Spencer 1.010 Urine Protein Negative Urine Glucose (UA) Normal Urine Ketones 50 H Urine Occult Blood Negative Urine Nitrite Negative Urine Bilirubin Negative Urine Urobilinogen Normal Ur Leukocyte Esterase Negative Urine RBC 0 SEEN Urine WBC 0 SEEN Ur Squamous Epith Cells 0-5 SEEN Urine Bacteria 0 SEEN Urine Mucus 0 SEEN MRSA (PCR) Negative 12/13/18 12/14/18 12/14/18 19:25 05:50 05:50 WBC 9.8 RBC 4.00 L Hgb 12.0 Hct 37.3 MCV 93.3 MCH 30.0 MCHC 32.2 RDW 13.7 RDW Differential 47.3 H Plt Count 187 MPV 10.9 Immature Gran % (Auto) 0.100 Neut % (Auto) 70.8 H Lymph % (Auto) 17.5 L Richardson % (Auto) 8.9 Eos % (Auto) 2.4 Baso % (Auto) 0.3 Absolute Neuts (auto) 6.9 Absolute Lymphs (auto) 1.71 Total Counted Not Reportable PT INR APTT Sodium 142 Potassium 3.8 Chloride 112 H Carbon Dioxide 22.0 Anion Gap 8 BUN 9 Creatinine 0.50 L Estim Creat Clear Calc 101.73 Est GFR (MDRD) Af Amer 165 Est GFR (MDRD) Non-Af 137 BUN/Creatinine Ratio 18.0 Glucose 80 Lactic Acid 1.9 Calcium 8.3 L Total Bilirubin AST ALT Alkaline Phosphatase Total Protein Albumin Globulin Albumin/Globulin Ratio Urine Color Urine Clarity Urine pH Ur Specific Spencer Urine Protein Urine Glucose (UA) Urine Ketones Urine Occult Blood Urine Nitrite Urine Bilirubin Urine Urobilinogen Ur Leukocyte Esterase Urine RBC Urine WBC Ur Squamous Epith Cells Urine Bacteria Urine Mucus MRSA (PCR) Medical Necessity - Tobacco Use Smoking Status: Never smoker Assessment/Plan All Active Problems Sepsis (Acute) Cellulitis of left foot (Acute) This is a 53 years old female patient presented to the emergency room because of left foot swelling, redness and pain with subjective fever and she was found to have acute cellulitis of the left foot/left lower leg with sepsis and she was on doxycycline as outpatient that was prescribed by urgent care without improvement. #1 acute cellulitis of the left foot/left lower leg/sepsis: She is on IV cefazolin. She has been afebrile overnight, less tachycardic, white blood cell count is back to normal. Other routine blood work is unremarkable. MRSA nasal screen was negative. Erythema and edema of the left foot minimally worsened. Blood and urine cultures are pending. Plan: Continue same treatment, will do venous Doppler of the left leg to rule out DVT. #2 hypokalemia: Likely because of HCTZ. Potassium replaced and corrected, today's potassium is 3.8. #3 hypertension: Blood pressure stable, continue HCTZ. #4 GERD: Continue PPI. #5 DVT prophylaxis: Subcu Lovenox. This note was generated with [employer] software. It may contain incorrect words, spelling, and punctuation that were not noted in checking the note before signing. Code Visit Inpatient E&M: 32079 Subs Hosp L2
[2018-12-14] MEDS: hydroCHLOROthiazide 12.5mg 12.5 MG PO (09:44)
[2018-12-14] MEDS: Enoxaparin 40 MG/0.4 ML Syringe SC (09:44)
[2018-12-14] MEDS: Pantoprazole Sodium 40 MG Tablet PO (09:45)
[2018-12-15 03:00] VITALS: PULSE 93
[2018-12-15 03:10] VITALS: BP 147/97; PULSE 95; RESP 16; TEMP 36.8; O2SAT 96
[2018-12-15] MEDS: Cefazolin 1 GM/50 ML BAG IV (05:30)
[2018-12-15 07:07] VITALS: PULSE 98
[2018-12-15 08:07] VITALS: O2SAT 95
[2018-12-15] MEDS: Acetaminophen 325 MG Tablet 650 MG PO (08:56)
[2018-12-15] MEDS: hydroCHLOROthiazide 12.5mg 12.5 MG PO (08:56)
[2018-12-15] MEDS: Pantoprazole Sodium 40 MG Tablet PO (08:56)
[2018-12-15] MEDS: Enoxaparin 40 MG/0.4 ML Syringe SC (09:01)
[2018-12-15 09:10] VITALS: BP 137/53; PULSE 73; RESP 16; TEMP 36.9; O2SAT 95
[2018-12-15 11:59] VITALS: PULSE 70; RESP 16; TEMP 36.6; O2SAT 96
--- NOTE | 2018-12-15 11:59 | DCINST_ITS ---
- Discharge Diagnoses Current Active Problems: Current Active and Chronic Problems Sepsis (Acute) Cellulitis of left foot (Acute) GERD (gastroesophageal reflux disease) (Chronic) Hypertension (Chronic) You will use the following diet at home:: No restrictions Your food should be the consistency of: Regular Your liquids should be the consistency of: Regular/Thin Discharge Activity: Return to Normal Activity Weight Bearing Status: Weight bearing as tolerated Call your doctor if your incision/area has: Increased Pain/ Swelling, Increased Redness Call your doctor if you observe: Fever of 101 or Higher Allergies/Adverse Reactions: Allergies No Known Allergies Allergy (Verified 10/12/17 01:28) Medications to take at Discharge Hydrochlorothiazide 12.5 mg PO DAILY 10/12/17 Omeprazole [Prilosec] 40 mg PO DAILY 12/13/18 Cephalexin [Keflex] 500 mg PO TID #18 capsule 12/15/18 The following prescriptions were given: Cephalexin [Keflex] 500 mg PO TID #18 capsule Primary Care Physician: [facility] Doctor,Out of [NON-STAFF] - Test Results: Test results from this visit will be discussed in further detail at your follow- up appointment, if applicable. Please Follow Up With: Primary Care Physician When: 2 weeks Proposed Discharge Date: 12/15/18
--- NOTE | 2018-12-15 12:00 | PCM.DC.SUM ---
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 Electronically Signed: Artemio Mason, at 16:22 EDT Tel , Service support , Operations: None Procedures: None Summary of Care Provided: The patient is a 53 year old F presents with left foot cellulitis. Began after clipping her toenails, primarily her left fifth toenail. And did take with a days worth of doxycycline but continued to get red. Was admitted and was started on ceftezole and and has noted improvement of her left foot though not completely resolved at this time. Patient did have some pain in her left groin did undergo a duplex and the preliminary report was that that was negative. Likely the pain that she was experiencing in her left groin is prior related with lymph node inflammation with the active infection. Since patient is done well cefazolin patient will complete 6 more days of Keflex. [] Patient Problems: Active and Suspected Problems Sepsis (Acute) Cellulitis of left foot (Acute) - Physical Exam General: Alert, No apparent distress HEENT: Atraumatic, Normocephalic Skin: - - Resolving erythema of the dorsum of the left foot, withdrawn within the.lines of demarcation. Vital Signs Temp Pulse Resp BP Pulse Ox 36.9 C 73 16 137/53 H 95 12/15/18 09:10 12/15/18 09:10 12/15/18 09:10 12/15/18 09:10 12/15/18 09:10 Oxygen Delivery Method Room Air Weight: 89.7 kg Body Mass Index (BMI) 36.1 Intake and Output for Last 24 Hours 12/13/18 12/14/18 12/15/18 23:59 23:59 23:59 Intake Total 4554 / 4554 60 / 60 Balance 4554 / 4554 60 / 60 Microbiology Past 72 Hours 12/13/18 16:44 Urine Culture - Preliminary Urine, Clean Catch Gram Positive Cocci Discharge Diet: No Restrictions Discharge Activity: Return to Normal Activity Weight Bearing Status: Weight bearing as tolerated Call your doctor if your incision/area has: Increased Pain/ Swelling, Increased Redness Call your doctor if you observe: Fever of 101 or Higher Home Medications: Medications to take at Discharge Hydrochlorothiazide 12.5 mg PO DAILY 10/12/17 Omeprazole [Prilosec] 40 mg PO DAILY 12/13/18 Cephalexin [Keflex] 500 mg PO TID #18 capsule 12/15/18 Following Prescrptions Were Given to Patient: Cephalexin [Keflex] 500 mg PO TID #18 capsule Primary Care Physician: [facility] Doctor,Out of [NON-STAFF] - Please Follow Up With: Primary Care Physician When: 2 weeks Disposition: Home Minutes spent on discharge:: 28 Patient Condition:: Good Medical Necessity - Tobacco Use Smoking Status: Never smoker Meaningful Use Info Meaningful Use Diagnoses (Choose all that apply): None applicable Code Visit Inpatient E&M: 24819 Disch Hosp
--- NOTE | 2018-12-15 12:05 | DS.PCM_ITS ---
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 Electronically Signed: Artemio Mason, at 16:22 EDT Tel , Service support , Operations: None Procedures: None Summary of Care Provided: The patient is a 53 year old F presents with left foot cellulitis. Began after clipping her toenails, primarily her left fifth toenail. And did take with a days worth of doxycycline but continued to get red. Was admitted and was started on ceftezole and and has noted improvement of her left foot though not completely resolved at this time. Patient did have some pain in her left groin did undergo a duplex and the preliminary report was that that was negative. Likely the pain that she was experiencing in her left groin is prior related with lymph node inflammation with the active infection. Since patient is done well cefazolin patient will complete 6 more days of Keflex. [] Patient Problems: Active and Suspected Problems Sepsis (Acute) Cellulitis of left foot (Acute) - Physical Exam General: Alert, No apparent distress HEENT: Atraumatic, Normocephalic Skin: - - Resolving erythema of the dorsum of the left foot, withdrawn within the.lines of demarcation. Vital Signs Temp Pulse Resp BP Pulse Ox 36.9 C 73 16 137/53 H 95 12/15/18 09:10 12/15/18 09:10 12/15/18 09:10 12/15/18 09:10 12/15/18 09:10 Oxygen Delivery Method Room Air Weight: 89.7 kg Body Mass Index (BMI) 36.1 Intake and Output for Last 24 Hours 12/13/18 12/14/18 12/15/18 23:59 23:59 23:59 Intake Total 4554 / 4554 60 / 60 Balance 4554 / 4554 60 / 60 Microbiology Past 72 Hours 12/13/18 16:44 Urine Culture - Preliminary Urine, Clean Catch Gram Positive Cocci Discharge Diet: No Restrictions Discharge Activity: Return to Normal Activity Weight Bearing Status: Weight bearing as tolerated Call your doctor if your incision/area has: Increased Pain/ Swelling, Increased Redness Call your doctor if you observe: Fever of 101 or Higher Home Medications: Medications to take at Discharge Hydrochlorothiazide 12.5 mg PO DAILY 10/12/17 Omeprazole [Prilosec] 40 mg PO DAILY 12/13/18 Cephalexin [Keflex] 500 mg PO TID #18 capsule 12/15/18 Following Prescrptions Were Given to Patient: Cephalexin [Keflex] 500 mg PO TID #18 capsule Primary Care Physician: [facility] Doctor,Out of [NON-STAFF] - Please Follow Up With: Primary Care Physician When: 2 weeks Disposition: Home Minutes spent on discharge:: 28 Patient Condition:: Good Medical Necessity - Tobacco Use Smoking Status: Never smoker Meaningful Use Info Meaningful Use Diagnoses (Choose all that apply): None applicable Code Visit Inpatient E&M: 02182 Disch Hosp
== END 2018-12-15 12:47 | disposition home or self-care (01) | DRG 872 ==
LOC: ED 15:15 → PCU 17:26
PROVIDERS: Admitting Provider Hospitalist; Emergency Provider Emergency Medicine; Referring Provider Hospitalist
DX: A41.9 Sepsis, unspecified organism (principal); L03.116 Cellulitis of left lower limb; L03.032 Cellulitis of left toe; I10 Essential (primary) hypertension; K21.9 Gastro-esophageal reflux disease without esophagitis; E87.6 Hypokalemia; Z79.899 Other long term (current) drug therapy
CPT/HCPCS: 36415; 71046; 73630; 80048; 80053; 81001; 83605; 85025; 85610; 85730; 87040; 87077; 87086; 87088; 87186; 87641; 93005; 93971; 97802; 99285; J7030; J7040; A4216; J0295

== ENCOUNTER 2021-04-21 18:36 | Emergency (ER) | payer OTHER, SELFPAY ==
[2021-04-21 18:37] VITALS: BP 140/91; PULSE 115; RESP 15; TEMP 37.4; O2SAT 96; BMI 39.6
--- NOTE | 2021-04-21 19:27 | EKG12_ITS ---
Test Reason : DYSRHYTHMIA Blood Pressure : / mmHG Vent. Rate : 112 BPM Atrial Rate : 112 BPM P-R Int : 142 ms QRS Dur : 086 ms QT Int : 340 ms P-R-T Axes : 037 001 000 degrees QTc Int : 464 ms Sinus tachycardia Poor R wave progression Confirmed by APOLLO SILVEIRA, KARRI ([id number]), news video editor CHRISS JENKINS ([id number]) on 04/24/2021 1:15:03 PM Referred By: ADOLFO Confirmed By:KARRI BUSTILLOS MD
--- NOTE | 2021-04-21 19:27 | RAD_ITS ---
STUDY: X-RAY CHEST REASON FOR EXAM: Female, 55 years old. Cough. Increased shortness of breath. COVID positive. TECHNIQUE: Single AP portable view of the chest. COMPARISON: 12/13/2018. FINDINGS: Increased inspiratory effort when compared to prior study. There is patchy infiltrates at both lung bases and along the right horizontal fissure. There is no demonstrated pleural abnormality. Normal size heart. Normal mediastinum and ginny. Normal visualized pulmonary arteries. Normal visualized aortic arch and descending thoracic aorta. Normal visualized thoracic spine. Normal visualized ribs, clavicles, and shoulders. There is no demonstrated abnormality of the visualized soft tissue structures of the upper abdomen. RAD/Chest 1 View (Portable) IMPRESSION: Patchy bibasilar infiltrates. The findings are consistent with but not diagnostic of COVID 19 pneumonia. Electronically Signed: Naldo Tyson DO at 20:28 EDT Tel [phone], Service support ,
[2021-04-21] MEDS: 0.9% Normal Saline 1,000 ML 1000 ML IV (19:35)
[2021-04-21 19:39] LABS: Absolute Lymphocyte Count 0.69 X10^3/uL (0.83-4.51); Absolute Neutrophil Count 3.8 X10^3/uL (2.0-7.7); Basophil# 0.02 X10^3/uL; Basophil% 0.4 % (0-1); Hematocrit 41.3 % (37-47); Hemoglobin 13.7 g/dL (12.0-15.0); Lymphocyte # 0.69 X10^3/ul (0.83-4.51); Lymphocyte % 14.7 % (19-41); Mean Corp Hgb Conc 33.2 g/dL (32-36); Mean Corpuscular Hgb 31.7 pg (27.0-32.0); Mean Corpuscular Volume 95.6 fL (81-99); Monocyte# 0.18 X10^3/uL; Monocyte% 3.8 % (0-10); NRBC Flagged by Analyzer 0 % (0-5); Neutrophil # 3.79 X10^3/uL (2.7-7.7); Neutrophil % 80.7 % (47-70); Platelet Count 170 K/mm3 (150-450); RBC Distribution Width CV 14.1 % (11.6-14.6); RBC Distribution Width SD 49.5 fl (35.1-43.9); Red Blood Count 4.32 M/mm3 (4.2-5.4); White Blood Count 4.7 K/mm3 (4.4-11.0)
[2021-04-21 19:49] LABS: Anion Gap 9 (5-15); BUN 12 mg/dL (7-18); BUN/Creat Ratio 16.3 RATIO (10-20); Calcium,Total 8.3 mg/dL (8.5-10.1); Chloride 101 mmol/L (98-107); Creatinine, Serum 0.74 mg/dL (0.55-1.02); EST Glomerular Filtration Rate 87 mL/min (>60); Est Glom Filt Rate - Afr Amer 105 mL/min (>60); Estimated Creatinine Clearance 64.06 ml/min; Glucose 110 mg/dL (74-106); Potassium 3.6 mmol/L (3.5-5.1); Sodium Level 137 mmol/L (136-145)
--- NOTE | 2021-04-21 19:55 | EDS_ITS ---
HPI HPI - URI History of Present Illness Chief Complaint: Shortness of Breath Informant: patient Onset/Context/Timing Onset: Days Context: Gradual Onset Timing: Continuous Current Severity: Mild Maximum Severity: Mild Associated Symptoms Associated Symptoms: Positive for Nasal Congestion, Headache, Myalgias, Nausea, Vomiting, Diarrhea, Shortness of Breath and Productive Cough Narrative Narrative: 55-year-old female history of gout and hypertension. Has had a day history of Covid. States that she had monoclonal antibody infusion today at an outside hospital outside hospital. She is actually feeling worse. Prior similar symptoms: No Recent Illness/Hospitalization: No ROS ROS ED ROS Narrative Cough, fever, nausea, vomiting, diarrhea, myalgias and headache. Review of Systems ROS Unobtainable: Denies due to encephalopathy Constitutional Constitutional ED: Reports chills, fever(s) and subjective Eyes Eyes: Denies change in vision ENT ENT ED: Denies ear pain or sore throat Cardiovascular Cardiovascular: Denies chest pain Respiratory/Chest Respiratory/Chest: Reports cough, dyspnea and sputum Gastrointestinal Gastrointestinal: Reports diarrhea, nausea and vomiting; Denies abdominal pain or constipation Genitourinary Genitourinary ED: Denies dysuria or hematuria Musculoskeletal Musculoskeletal: Reports myalgias Integumentary Denies rash Neurologic Neurologic: Reports headache(s) Psychiatric Psychiatric: Denies depression Endocrine Endocrinology: Denies polyuria Hematologic/Lymphatic Hematologic/Lymphatic: Denies easy bruising Allergic/Immunologic Allergic/Immunologic ED: Denies urticaria PFSH PFSH Home Medications omeprazole 40 mg PO DAILY 12/13/18 [History Last Taken Unknown] allopurinol 300 mg PO DAILY 04/21/21 [History Last Taken Unknown] dexamethasone [Decadron] 6 mg PO DAILY 7 Days #7 tab 04/21/21 [Rx Last Taken Unknown] lisinopril 20 mg PO DAILY 04/21/21 [History Last Taken Unknown] metoprolol succinate 50 mg PO DAILY 04/21/21 [History Last Taken Unknown] ondansetron 4 mg PO Q8H PRN #7 tab 04/21/21 [Rx Last Taken Unknown] Allergy/AdvReac Type Severity Reaction Status Date / Time No Known Allergies Allergy Verified 04/21/21 18:37 Social History Smoking Status: Never smoker EXAM Physical Exam Narrative Exam Narrative: Middle-aged female no acute distress vital signs stable afebrile does not look septic or toxic. Pulse ox 96% on room air no signs of hypoxia. HEENT exam moist with membranes. Neck nontender no lymphadenopathy. Neck nontender no meningismus. Lungs clear to auscultation. Heart regular rhythm rate about 110 no murmur. Abdomen soft nontender normal bowel sounds no peritoneal signs. Patient moving all 4 extremities. Calves nontender no edema no cords. Neurologically awake and alert with no focal motor deficits. Const Vital Signs: 04/21/21 18:37 Temperature 99.3 F H Temperature Source Temporal Pulse Rate 115 H Respiratory Rate 15 Blood Pressure 140/91 H Blood Pressure Mean 107 Pulse Ox 96 Oxygen Delivery Method Room Air Positive well nourished and well developed; Negative for cachectic or contractures General Appearance ED: well developed and NAD; Negative for cachectic, contractures, cyanotic, diaphoretic or pallor Nutritional Appearance: Negative for cachectic HEENT Reports moist mucous membranes normocephalic; Negative for atraumatic Eyes PERRL and EOMs intact bilaterally Neck no lymphadenopathy, supple, no meningeal signs and no JVD General: Negative for anterior neck swelling Resp normal respiratory effort and clear to auscultation bilaterally Auscultation: Negative for rales, rhonchi or wheezes Cardio no murmurs Rate: tachycardic Rhythm: regular rhythm GI non-tender, non-distended and no masses Inspection: Negative for abdominal distention Auscultation: normoactive bowel sounds Palpation: soft; Negative for tender or guarding Back/Spine no CVA tenderness and normal ROM General Back: Negative for CVA tenderness Cervical Spine: Negative for cervical spine tenderness Extremity normal to inspection and full ROM General Extremety ED: Negative for cyanosis or tenderness General Extremity: Negative for cyanosis Neuro oriented x3, CN's II-XII intact bilaterally and no sensory deficits noted Sensorium / Orientation: alert, oriented to person, oriented to place, oriented to time and stuporous; Negative for orientation impaired or lethargic Motor Exam: strength 5/5 throughout; Negative for general weakness or strength abnormal Psych mental status grossly normal Attitude: No agitated Mood & Affect: Negative for depressed or tearful Skin General Skin Exam: Negative for jaundice or pallor Lesions: no lesions Rashes: no rashes MDM MDM MDM Narrative Medical decision making narrative: 55-year-old female 8-day history of Covid. Received monoclonal antibodies today. Says she is feeling worse. Exam benign. Vital signs stable. She is not hypoxic. Patient was treated with IV fluids, Toradol and Zofran and discharged home on Decadron and Zofran as needed. Outpatient follow-up. Lab Data Attestation: I reviewed the patient's lab results. Lab results narrative: CBC shows white count 4.7. Hemoglobin 13.7. Electrolytes unremarkable gap at 9. Normal BUN and creatinine. Glucose 110. Chest x-ray consistent with Covid. Labs: Laboratory Results - last 24 hr 04/21/21 04/21/21 19:20 19:20 WBC 4.7 RBC 4.32 Hgb 13.7 Hct 41.3 MCV 95.6 MCH 31.7 MCHC 33.2 RDW Std Deviation 49.5 H RDW Coeff of Nick 14.1 Plt Count 170 MPV 11.0 Immature Gran % (Auto) 0.400 Neut % (Auto) 80.7 H Lymph % (Auto) 14.7 L Richardson % (Auto) 3.8 Eos % (Auto) 0.0 Baso % (Auto) 0.4 Absolute Neuts (auto) 3.8 Absolute Lymphs (auto) 0.69 L Nucleated RBC % 0 Sodium 137 Potassium 3.6 Chloride 101 Carbon Dioxide 27.0 Anion Gap 9 BUN 12 Creatinine 0.74 Estim Creat Clear Calc 64.06 Est GFR (MDRD) Af Amer 105 Est GFR (MDRD) Non-Af 87 BUN/Creatinine Ratio 16.3 Glucose 110 H Calcium 8.3 L Radiography Diagnostic Testing: Portable single view chest x-ray interpreted by myself shows bilateral common infiltrates. Rhythm Strip Rhythm Strip: Sinus Tach Rate: 112 Ectopy: None EKG Initial EKG: Attestation: I personally reviewed and interpreted this EKG as follows: Interpretation: No Acute Injury Pattern and Sinus Tachycardia Comments: Sinus tachycardia rate of 112 no acute signs of [place] nor ischemia. Prior EKG tracings: not available for review Discharge Plan Triage Chief Complaint: Shortness of Breath ED Provider: Pete Ansari Dx/Rx/DC Orders Clinical Impression: COVID-19 Instructions: Human Coronaviruses Prescriptions: New dexamethasone [Decadron] 6 mg tablet 6 mg PO DAILY 7 Days Qty: 7 RF: 0 ondansetron 4 mg tablet,disintegrating 4 mg PO Q8H PRN (Reason: nausea and vomiting) Qty: 7 RF: 0 No Action omeprazole 20 MG capsule 40 mg PO DAILY RF: 0 lisinopril 20 mg Tablet 20 mg PO DAILY RF: 0 allopurinol 300 mg Tablet 300 mg PO DAILY RF: 0 metoprolol succinate 50 mg Capsule,Sprinkle,Er 24hr 50 mg PO DAILY RF: 0 Primary Care Provider: Larry Perez Referrals: Larry Perez MD [Primary Care Provider] - 1 Week if not improving Activity Restrictions/Additional Instructions: Plenty of fluids and rest. Daily Decadron. Zofran as needed for nausea. Tylenol for fever. Follow-up with your doctor if not improving or return emergency room if feeling worse. Disposition Disposition: Home, Self Care
[2021-04-21 20:27] VITALS: BP 116/78; PULSE 100; RESP 18; O2SAT 98
== END 2021-04-21 21:19 | disposition home or self-care (01) ==
PROVIDERS: Emergency Provider Emergency Medicine; PCP Family Medicine
DX: U07.1 COVID-19 (principal); I10 Essential (primary) hypertension; Z79.899 Other long term (current) drug therapy
CPT/HCPCS: 71045; 80048; 85025; 93005; 96360; 96361; 99282; J7030; A4216